=== PATIENT | female | born 1980 | race Caucasian/White ===

== ENCOUNTER 2019-10-12 17:23 | Inpatient (IN) | payer OTHER, SELFPAY ==
--- NOTE | 2019-10-12 18:47 | P.HPOB_ITS ---
OB HPI Date/Time Date of admission: 10/12/19 Date Patient Seen: 10/12/19 Time Patient Seen: 18:48 History of Present Condition Chief complaint: eval of labor : 4 Para: 0 Estimated Date of Delivery: 11/03/19 Estimated Gestational Age (weeks): 36+6 Narrative: Aurea Muller is a 39 year old female 4 para 0100 at 36 and 6 7th weeks gestation who presented with spontaneous rupture of membranes Patient is being followed at the [facility] by Maternal- Medicine. She contacted them when her water broke and they asked her to stop here and be evaluated and decide on the safety of continuing on to [place] for her . She is scheduled for primary section tomorrow at the [facility] due to breech presentation. Patient complained of irregular contractions that were not very painful. No vaginal bleeding. Upon inspection patient had moderate meconium-stained amniotic fluid on the perineum. Ultrasound revealed baby to be in the breech presentation with either fingers or toes over the cervix. The heart rate tracing was not reassuring. A decision was made to proceed with primary low- transverse section at [facility], instead of transferring to the [facility]. Patient has also been followed for preeclampsia. Her blood pressures here or in the 150s to 160s over 90s to 100. Indications Operative indications ( section): preeclampsia (Fingers or toes over the cervix) History of Present care: good care and initiated at week # Dating criteria: LMP confirmed by 1st trimester US Ultrasounds: normal 1st trimester US and normal mid trimester US Obstetrical complications: preeclampsia and other (Breech presentation, incompetent cervix ( Cunningham's cervical cerclage in place and )) Medical complications: none Preadmission Labs -: GBS status: negative Urine: Negative Prior (ies) History: 23 wk , Salvage cerclage placed priro to delivery 8 wk SAB 13 wk SAB, D&C required Evaluation Evaluation Baseline heart rate: 145 Variability: Minimal (3-5) monitor accelerations: Present (Few) monitor decelerations: Absent Contraction Frequency (minutes): 10 Uterine Contraction Intensity: Mild Category of Tracing: III Cervical dilation (cm): 5 Cervical effacement (%): 50 station: -1 [facility] Medical History (Updated 10/12/19 @ 18:58 by Brynn Batista MD) Hx of cerclage, currently (Acute) Incompetent cervix (Acute) Surgical History (Updated 10/12/19 @ 18:58 by Brynn Batista MD) H/O dilation and curettage (Acute) Status post hysteroscopic surgical removal of uterine septum (Acute) Exam Vital Signs (past 8 hours): Blood pressure: 140s to 160s over 90s to 100 Generally: No acute distress Lungs: Clear to auscultation bilaterally Cardiovascular: Regular rate and rhythm Fundal height: 35 cm Estimated weight: 6 lb Extremities: Trace edema, negative Homans, 1+ DTRs Ultrasound: Breech presentation with the back towards the patient's right side. Cervical exam: 4-5 cm dilated/75% effaced. Fingers or toes palpable over the cervix. Moderate meconium-stained fluid on the perineum. Assessment and Plan Assessment and Plan Assessment and Plan narrative: Assessment: 39-year-old 4 para 0100 at 36 and 6 7th weeks gestation with spontaneous rupture of membranes with moderate meconium stained amniotic fluid, mild preeclampsia, breech presentation with fingers or toes over the cervix, and nonreassuring heart rate tracing. Patient is being seen at the [facility] by maternal medicine. She is scheduled for a primary section October 13, 2019 Plan: Discussed with the patient and her that I do not feel that it is safe for her to travel to the [facility] to be delivered. We will proceed with primary low-transverse section here at [facility] The risks, benefits, and alternatives to the procedure were explained to the patient. The risks including bleeding, infection, injury to the bowel, bladder, or ureters. She understands these risks and agrees to proceed. A full par Q was held and consent form was signed. Time Spent with Patient Total time spent with greater than 50% in coordination of care (as documented) at patient's floor/unit and/or counseling patient:: 25 - 35 minutes
[2019-10-12 18:53] LABS: Add Manual Diff / Slide Review NO; Basophils Absolute Auto 100 /uL (0-100); Basophils Percent Auto 1.1 % (0-2); Eosinophils Absolute Auto 300 /uL (0-450); Eosinophils Percent Auto 4.2 % (2-4); Hematocrit 32.6 % (36-46); Hemoglobin 11.1 g/dL (12.0-16.0); Lymphocytes Absolute Auto 1200 /uL (1100-4500); Lymphocytes Percent Auto 14.3 % (25-40); Mean Corpuscular HGB Conc 34.1 % (30-36); Mean Corpuscular Hemoglobin 26.7 PG (26-34); Mean Corpuscular Volume 78.4 fL (80-100); Monocytes Absolute Auto 800 /uL (0-900); Monocytes Percent Auto 9.6 % (3-14); Neutrophils Absolute Auto 5800 /uL (1500-7000); Neutrophils Percent Auto 70.8 % (50-75); Platelet Count 228 X10^3/uL (150-400); Red Blood Cell Count 4.16 X10^6/uL (4.0-5.2); Red Cell Distribution Width 15.5 % (11.6-14.8); White Blood Cell Count 8.1 X10^3/uL (4.5-11.0)
[2019-10-12] MEDS: ONDANSETRON 4 MG/2 ML INJ IV (18:54)
[2019-10-12] MEDS: METOCLOPRAMIDE 10 MG/2 ML INJ IV (18:54)
[2019-10-12] MEDS: LACTATED RINGERS 1,000 ML 100 ML IV ×2 (18:55→23:02)
[2019-10-12] MEDS: CITRIC ACID/SODIUM CITRATE 15 ML SOLUTION 30 ML PO (19:00)
--- NOTE | 2019-10-12 19:09 | PM.PREOP ---
Pre-operative Note Interval Note History & Physical reviewed/Exam performed by Physician: Yes Changes to H&P: No
[2019-10-12 19:12] LABS: Alanine Aminotransferase 30 IU/L (<35); Aspartate Aminotransferase 68 IU/L (14-36); BUN Creatinine Ratio 15.6 (6-22); Blood Urea Nitrogen 14 mg/dL (7-17); Calcium 8.7 mg/dL (8.4-10.2); Carbon Dioxide 21 mmol/L (22-32); Chloride 108 mmol/L (98-107); Estimated Glomerular Filt Rate > 60.0 mL/min (>60); Glucose 112 mg/dL (70-100); HEMOLYSIS < 15 (0-50); Potassium 4.5 mmol/L (3.4-5.1); Sodium 136 mmol/L (137-145); Uric Acid 7.2 mg/dL (2.5-6.2)
[2019-10-12 19:29] VITALS: BP 145/98
[2019-10-12] MEDS: CEFAZOLIN 2 GM/100 ML FROZ.PIGGY IV (19:37)
--- NOTE | 2019-10-12 20:07 | SUR.OPER ---
Supine on Padded OR bed, head on pillow, safety belt at thigh, arms secured on padded arm boards at <90 degrees abduction. Bump under right buttock. Legs uncrossed with pillow under knees, gel pad to heels, tape over blanket to lower legs.
[2019-10-12] MEDS: ACETAMINOPHEN IV 1,000 MG/100 ML VIAL 400 MG IV (20:33)
--- NOTE | 2019-10-12 20:42 | SUR.OPER ---
live female at 2013. APGARS 6/8
--- NOTE | 2019-10-12 21:09 | PM.GYNOP.1 ---
Operative Date/Time/Diagnoses Date of procedure: 10/12/19 Time of procedure: 21:09 Pre-op diagnosis: Thirty-six and 6 7th weeks gestation Spontaneous rupture membranes with moderate meconium stained amniotic fluid Mild preeclampsia Double footling breech presentation Nonreassuring heart rate tracing Post-op diagnosis: same Procedure & Clinicians Procedure: Procedures Operation Date: 10/12/19 19:45 Actual Procedures Side Surgeon p Section Brynn Batista MD Indications: Thirty-six and 6 weeks gestation Mild preeclampsia Spontaneous rupture membranes with moderate meconium stained amniotic fluid Nonreassuring heart rate tracing Double footling breech presentation Surgeon: Brynn Batista Circular Sawyer Helper: Shelley Reis Anesthesia Type: Spinal (With Duramorph) Operative Notes Findings: Live female infant in the double footling breech presentation Double nuchal cord Normal uterus, tubes, and ovaries Closure Type: primary Specimen(s): other (Placenta, cord bloods, cord pH) Applied: catheter Estimated blood loss (mL): 500 Blood products transfused: none Procedure in detail: The patient was taken to the operating room where she was placed in the seated position. Spinal anesthesia with Duramorph was administered. She was then placed in the dorsal supine position with a leftward tilt. She was prepped and draped in the usual sterile fashion. A timeout was performed. After spinal analgesia was found to be adequate, a Pfannenstiel skin incision was made 2 fingerbreadths above the pubic symphysis and carried through to the underlying layer fascia. The fascia was nicked in the midline, and the incision extended bilaterally with the [place]ona scissors. The superior aspect of the fascial incision was grasped with a [place] clamps, elevated, and the underlying rectus muscles dissected off sharply and bluntly. Attention was then turned to the inferior aspect of this incision which in a similar fashion was grasped with a [place] clamps, elevated, and the underlying rectus muscles dissected off sharply and bluntly. The rectus muscles were in the midline. The peritoneum was identified, grasped between 2 hemostats, and entered sharply with the Metzenbaum scissors. This incision was extended superiorly and inferiorly with good visualization of the bladder. The bladder blade was inserted. The vesicouterine peritoneum was identified, grasped with the pickup, and entered sharply with the Metzenbaum scissors. This incision was extended bilaterally, and the bladder flap was created digitally. The bladder blade was reinserted. The lower uterine segment was incised in a transverse fashion with the scalpel. Upon entering the amniotic sac there was very scant meconium stained amniotic fluid. The infant was delivered by total breech extraction. There was a double nuchal cord which was reduced. The Pfannenstiel incision was extended towards the fundus of the uterus to make more room to deliver the head. The cord was double clamped and cut. A piece of umbilical cord was sent for cord pH. Cord bloods were obtained. The infant was handed off to waiting RN and RT. The placenta was delivered manually. The uterus was cleared of all clots and debris. The uterine extension was closed in 2 layers with # 1 chromic. The horizontal uterine incision was repaired with #1 chromic in a running interlocking fashion, and a second layer the same suture was used for an imbricating layer. Hemostasis was achieved. The tubes and ovaries were examined and were found to be normal. The gutters were cleared of all clots and debris. The serosa of the uterus was closed with 2 0 Vicryl with a baseball stitch. Hemostasis was achieved. The bladder flap was reapproximated using 2-0 Vicryl in a running fashion. The parietal peritoneum was closed using 2-0 Vicryl in a running fashion. The fascia was reapproximated using 0 Vicryl in a running fashion. Subcutaneous layer was copiously irrigated with warm normal saline. Five simple interrupted sutures of 3-0 Vicryl were placed to reapproximate the subcutaneous layer. The skin was closed with 4-0 Biosyn in a subcuticular fashion. Steri-Strips were placed. An Aquacel dressing was placed. The uterus was expressed of a small amount of old blood. Sponge, lap, and instrument counts were correct x-2. The patient tolerated the procedure well, and was taken to PACU in stable condition. Complications: none Post-operative Condition: stable Disposition: PACU Plan for aftercare: To the center after recovery
[2019-10-12 21:10] VITALS: BP 117/77; PULSE 74; RESP 20; TEMP 36.8; O2SAT 96
[2019-10-12 21:15] VITALS: BP 141/87; PULSE 72; RESP 18; O2SAT 97
[2019-10-12 21:19] VITALS: BP 147/78; PULSE 67; RESP 15; O2SAT 97
[2019-10-12 21:25] VITALS: BP 142/94; PULSE 71; RESP 17; TEMP 36.3; O2SAT 98
[2019-10-13] MEDS: KETOROLAC 30 MG/ML VIAL IV ×3 (04:08→18:21)
[2019-10-13 05:08] LABS: Hematocrit 32.1 % (36-46); Hemoglobin 10.5 g/dL (12.0-16.0)
[2019-10-13] MEDS: PRENATAL VIT,CALC/IRON/FOLIC 1 TABLET 1 TAB PO (08:19)
[2019-10-13] MEDS: DOCUSATE 250 MG CAPSULE PO (08:19)
[2019-10-13 08:20] VITALS: BP 127/84; PULSE 67
[2019-10-13] MEDS: LABETALOL 100 MG TABLET PO ×2 (08:20→21:22)
[2019-10-14 02:53] VITALS: BP 153/92; PULSE 84; RESP 16; TEMP 36.7
[2019-10-14 09:10] VITALS: BP 129/61
[2019-10-14] MEDS: LABETALOL 100 MG TABLET PO ×2 (09:10→21:32)
[2019-10-14] MEDS: DOCUSATE 250 MG CAPSULE PO (09:10)
[2019-10-14] MEDS: PRENATAL VIT,CALC/IRON/FOLIC 1 TABLET 1 TAB PO (09:10)
[2019-10-14] MEDS: IBUPROFEN 600 MG TABLET PO ×2 (10:44→17:47)
[2019-10-14 21:32] VITALS: BP 139/88; PULSE 69
[2019-10-15 08:51] VITALS: BP 159/92
[2019-10-15] MEDS: LABETALOL 100 MG TABLET PO (08:51)
[2019-10-15] MEDS: PRENATAL VIT,CALC/IRON/FOLIC 1 TABLET 1 TAB PO (08:51)
[2019-10-15] MEDS: DOCUSATE 250 MG CAPSULE PO (08:51)
--- NOTE | 2019-10-18 14:31 | PM.OBPN.1 ---
Subjective - OB Subjective Patient comments: no complaints, pain well controlled and tolerating diet baby status: doing well and nursing well feeding status: exclusively breast feeding Date Patient Seen: 10/13/19 Time Patient Seen: 14:00 Exam Vital Signs (past 8 hours): Oxygen Delivery Method Room Air Narrative Exam Narrative: Generally: Patient is sitting up in bed, nursing , no acute distress Lungs: Clear to auscultation bilaterally Cardiovascular: Regular rate and rhythm Fundus: Firm at U -2 Incision: Clean dry and intact with Aquacel dressing Extremities: Trace edema, negative Homans Objective Labs Result Diagrams: 10/13/19 05:00 10/12/19 18:45 Assessment & Plan Plan day: 1 plan OB: routine postop care Time Spent With Patient Time: Total time spent is greater than 50% in coordination of care (as documented) at patient's floor/unit and/or counseling patient: Time with patient: less than 15 minutes
--- NOTE | 2019-10-18 14:32 | PM.OBPN.1 ---
Subjective - OB Subjective Patient comments: no complaints, pain well controlled and tolerating diet baby status: doing well and nursing well feeding status: exclusively breast feeding Date Patient Seen: 10/14/19 Time Patient Seen: 12:00 Exam Vital Signs (past 8 hours): Oxygen Delivery Method Room Air Narrative Exam Narrative: Generally: Patient is sitting up in bed, no acute distress Fundus: Firm at U -2 Incision: Clean dry and intact with Aquacel dressing Extremities: Negative Homans, trace edema Objective Labs Result Diagrams: 10/13/19 05:00 10/12/19 18:45 Assessment & Plan Plan day: 2 plan OB: routine postop care Time Spent With Patient Time: Total time spent is greater than 50% in coordination of care (as documented) at patient's floor/unit and/or counseling patient: Time with patient: less than 15 minutes
--- NOTE | 2019-10-18 14:33 | PM.OBDS.1 ---
Discharge Providers Provider Date of admission: 10/12/19 17:23 Discharge Date: 10/15/19 Consults: 10/12/19 22:13 Consult to Social Media Specialist Routine Comment: Discharge provider: Brynn Batista MD Summary Hospital Course Date Patient Seen: 10/15/19 Time Patient Seen: 11:00 Procedures: Primary low-transverse section Hospital Course: Patient is a 39-year-old 4 para 2 who presented with spontaneous rupture of membranes, mild preeclampsia, and breech presentation with meconium-stained amniotic fluid She was getting regular care at the [facility], but lives nearby. She underwent a primary low-transverse section without complication. Her postoperative course was unremarkable. Peripartum Data Infant Delivery Method: Section Laceration description: None Episiotomy description: None Procedures: Spinal anesthesia Primary low-transverse section complications: none Status at Discharge Cognitive/behavioral status at discharge: oriented Functional status at discharge: independent ambulation Overall status at discharge: patient is progressing back to baseline Time Spent with Patient Time attestation: Total time spent providing and/or coordinating discharge services: Time spent: Less than 30 minutes Objective Labs Result Diagrams: 10/13/19 05:00 10/12/19 18:45 Exam Vital Signs (past 8 hours): Oxygen Delivery Method Room Air Narrative Exam Narrative: Generally: Patient walking around in room, no acute distress Fundus: Firm at U -2 Incision: Clean dry and intact with Aquacel dressing Extremities: Negative Homans, no edema Discharge Plan Discharge Plan Patient Disposition: Home Discharge comment: Call with fever, chills, redness or drainage around the incision or bleeding vaginally soaking a pad in an hour No heavy lifting Discharge orders & Medications Prescriptions: New docusate sodium [Colace] 100 mg capsule 100 mg PO DAILY Qty: 20 RF: 0 codeine sulfate 15 mg tablet 15 mg PO Q4-6H PRN (Reason: post op pain) Qty: 20 RF: 0 Continued labetalol 100 mg Tablet See Protocol mg BID RF: 0 Discontinued omeprazole 40 mg Capsule,Delayed Release(Dr/Ec) 40 mg PO DAILY RF: 0 Follow up/Referrals: Brynn Batista MD [Physician] - 1 Week ('s nurse will call you with appointment on Thursday for one week) Diet/Activity/Treatments Diet: Regular Activity: No heavy lifting Skin/Wound/Dressing Care Report to your healthcare provider any signs of infection, such as:: chills, fever, increased pain, unusual drainage and unusual redness Dressing: Do not remove Visit Report/Discharge Packet Instructions: DI for Discharges patient from system. Discharge Date/Time: 10/15/19 13:19
== END 2019-10-15 13:19 | disposition home or self-care (01) | DRG 786 ==
PROVIDERS: Admitting Provider Obstetrics & Gynecology; Visit Provider Obstetrics & Gynecology
PROC: 10D00Z1 Extraction of Products of Conception, Low, Open Approach (ICD-10-PCS; CPT 59514; principal; 2019-10-12 19:45)
DX: O14.04 Mild to moderate pre-eclampsia, complicating childbirth (principal); O34.33 Maternal care for cervical incompetence, third trimester; O60.14X0 Preterm labor third trimester with preterm delivery third trimester, not applicable or unspecified; O65.5 Obstructed labor due to abnormality of maternal pelvic organs; O77.0 Labor and delivery complicated by meconium in amniotic fluid; Z3A.36 36 weeks gestation of pregnancy; Z37.0 Single live birth; O32.8XX0 Maternal care for other malpresentation of fetus, not applicable or unspecified; O36.8330 Maternal care for abnormalities of the fetal heart rate or rhythm, third trimester, not applicable or unspecified; O69.81X0 Labor and delivery complicated by cord around neck, without compression, not applicable or unspecified
CPT/HCPCS: 36415; 59050; 59514; 76815; 80048; 84450; 84460; 84550; 85014; 85018; 85025; 86850; 86900; 86901; G0379; J0131; J0690; J1885; J2274; J2405; J2590; J2765